=== PATIENT | female | born 1990 | race Caucasian/White ===

== ENCOUNTER → 2021-09-26 14:45 | Outpatient (BNVA) | payer MEDICAID, SELFPAY | PROVIDERS: Family Provider Family Medicine; PCP Family Medicine; Visit Provider Obstetrics & Gynecology | DX: Z01.419 Encounter for gynecological examination (general) (routine) without abnormal findings (principal); N92.6 Irregular menstruation, unspecified | CPT/HCPCS: 84443; 87624 ==

== ENCOUNTER → 2021-10-13 10:10 | Outpatient (BNVA) | payer MEDICAID, SELFPAY | PROVIDERS: Family Provider Family Medicine; PCP Family Medicine; Visit Provider Obstetrics & Gynecology | DX: N92.6 Irregular menstruation, unspecified (principal); N83.201 Unspecified ovarian cyst, right side | CPT/HCPCS: 76830 ==

== ENCOUNTER → 2022-04-03 09:10 | Outpatient (BNVA) | payer MEDICAID, SELFPAY | PROVIDERS: Family Provider Family Medicine; PCP Family Medicine; Visit Provider Student in an Organized Health Care Education/Training Program | DX: M65.342 Trigger finger, left ring finger (principal) | CPT/HCPCS: 73130 ==

== ENCOUNTER 2022-09-02 04:09 | Emergency (ER) | payer MEDICAID, SELFPAY ==
[2022-09-02 04:15] VITALS: BP 126/90; PULSE 121; RESP 18; TEMP 37.7; O2SAT 96; BMI 30.4
--- NOTE | 2022-09-02 04:21 | XRR_ITS ---
PROCEDURE INFORMATION: Exam: XR Chest Exam date and time: 09/02/2022 5:01 AM Age: 31 years old Clinical indication: Fever; Patient HX: 105 temp TECHNIQUE: Imaging protocol: Radiologic exam of the chest. Views: 1 view. COMPARISON: No relevant prior studies available. FINDINGS: Lungs: Unremarkable. No consolidation. Pleural spaces: Unremarkable. No pleural effusion. No pneumothorax. Heart/Mediastinum: Unremarkable. No cardiomegaly. Bones/joints: Unremarkable. XR/XR chest 1V portable [id number] IMPRESSION: No acute findings.
--- NOTE | 2022-09-02 04:28 | W.ED.FEVER ---
HPI - Fever General: Chief Complaint: Fever Stated Complaint: fever, sore throat, back pain Time Seen by Provider: 09/02/22 04:12 Source: patient Mode of arrival: ambulatory Limitations: no limitations History of Present Illness: 31-year-old female states she been having a fever along with mainly a sore throat since Sunday. States it is worsened throughout the week states her temperature was up to like 103 today she took a Motrin before arrival her temperature is improved she states that she has had some painful swallowing she feels like her tonsils are swollen she denies any cough states she had some muscle aches no vomiting or diarrhea. Associated symptoms: Reports chills; Deny abdominal pain, chest pain, diarrhea, dysuria, headache(s), nausea or vomiting Review of Systems Const: Reports: fever(s) and chills; Denies: body aches or change in appetite Eyes: Denies: blurry vision or eye discomfort ENMT: Reports: throat pain; Denies: dental pain Card: Denies: chest pain Resp: Denies: dyspnea GI: Denies: abdominal pain, nausea, vomiting or diarrhea : Denies: dysuria Musc: Denies: neck pain or back pain Skin/Breast: Denies: rash Neuro: Denies: headache(s) Psych: Denies: depression Cooper/Lymph: Denies: easy bruising All/Imm: Denies: urticaria PFSH ED PFSH: Medical History No pertinent past medical history neghx: htn, dm, thyroid, dvt/pe PCP: Dr. Menchaca Trigger finger, left ring finger Umbilical hernia Surgical History History of appendectomy History of hernia repair Hx laparoscopic cholecystectomy Family History Father Diabetes Hypertension Hypercholesteremia Thyroid disease hyperthyroidism Mother Hypertension Hypercholesteremia Ovarian cancer Thyroid disease hyperthyroidism Cervical cancer Denies family history of Colon cancer Heart disease Breast cancer Uterine cancer Stroke Physical Exam Const: COMMON NORMALS: no acute distress, patient oriented x3 and healthy appearing HENMT: COMMON NORMALS: normocephalic and atraumatic HEAD & SCALP: normocephalic and atraumatic OTHER: tonsilar erythema with no uvula deviation handling secretions well Eye: COMMON NORMALS: Equal, round and reactive pupils present and EOMs intact bilaterally PUPIL: Yes Equal, round and reactive pupils present Neck/C-Spine: COMMON NORMALS: full ROM and supple Chest: COMMONS NORMALS: normal inspection of the chest and normal palpation of entire chest wall Resp: COMMON NORMALS: normal respiratory effort, No retractions, No use of accessory muscles and clear to auscultation bilaterally AUSCULTATION: clear to auscultation bilaterally Cardio: COMMON NORMALS: regular rate, regular rhythm and No murmurs present (Cardio) RATE: regular rate RHYTHM: regular rhythm GI: COMMON NORMALS: Normal to inspection, nondistended, normoactive bowel sounds present, Soft to palpation, non-tender and no masses PALPATION: Yes Soft to palpation Extremity: COMMON NORMALS: normal to inspection and full ROM Neuro: COMMON NORMALS: patient oriented x3, moves all extremities and no focal motor deficits Psych: COMMON NORMALS: mental status grossly normal, Normal thought process present and cooperative THOUGHT PROCESS: Normal thought process present Skin: COMMON NORMALS: no rashes or lesions noted and no wounds GENERAL SKIN EXAM: no rashes or lesions noted Course Vital Signs: Vital signs: Vital Signs Temperature 100 F H 09/02/22 04:15 Pulse Rate 121 H 09/02/22 04:15 Respiratory Rate 18 09/02/22 04:15 Blood Pressure 126/90 09/02/22 04:15 Pulse Oximetry 96 09/02/22 04:15 MDM - Fever Medical Decision Making Patient presents for sore throat she does have some cervical lymphadenopathy along with enlarged reddened tonsils her mono here was negative she feels much improved after Decadron and IV fluids her heart rate is now in the 80s she has no difficulty swallowing no signs of peritonsillar abscess we will prescribe her antibiotics she is to follow-up with PCP and return if worsening she understands agrees to plan. Lab Data Radiology Impressions Chest X-Ray 09/02/22 04:21 IMPRESSION: No acute findings. Laboratory Results Urine Color Yellow (Yellow) 09/02/22 05:25 Urine Appearance Clear (CLEAR) 09/02/22 05:25 Urine pH 7 (5-7) 09/02/22 05:25 Ur Specific [place] 1.000 (1.005-1.030) L 09/02/22 05:25 Urine Protein Neg (Negative) 09/02/22 05:25 Urine Glucose (UA) Norm (Normal) 09/02/22 05:25 Urine Ketones Negative (Negative) 09/02/22 05:25 Urine Blood 2+ (Negative) H 09/02/22 05:25 Urine Nitrate Negative (Negative) 09/02/22 05:25 Urine Bilirubin Neg (Negative) 09/02/22 05:25 Urine Urobilinogen Norm mg/dL (Negative) 09/02/22 05:25 Ur Leukocyte Esterase Negative (Negative) 09/02/22 05:25 Urine RBC 5-10 /hpf (0-2) H 09/02/22 05:25 Urine WBC None /hpf (0-5) 09/02/22 05:25 Ur Squamous Epith Cells 0-4 /hpf (0-5) H 09/02/22 05:25 Amorphous Sediment Not Reportable 09/02/22 05:25 Urine Bacteria Trace /hpf (NONE) 09/02/22 05:25 Monoscreen Negative (Negative) 09/02/22 04:35 Influenza Type A Ag negative (Negative) 09/02/22 04:50 Influenza Type B Ag negative (Negative) 09/02/22 04:50 SARS-CoV-2 Ag (Rapid) negative (Negative) 09/02/22 04:50 Discharge Plan Discharge Patient Disposition: Home Clinical Impression: Pharyngitis Condition: Stable Prescriptions: New cephalexin 500 mg capsule 500 mg PO TID 7 Days Qty: 21 0RF No Action ibuprofen [Advil] 200 mg tablet 200 mg PO Q6H PRN Women's Multivitamin 18 mg-400 mcg- 500 mg-50 mcg tablet PO etonogestrel-ethinyl estradiol [EluRyng] 0.12-0.015 mg/24 hr ring 1 vag ring vaginal .3 weeks Qty: 1 12RF Rx Instructions: place for three weeks, then leave out for 1 week for period Discharge Orders: Discharge ED (Routine); Ordered 09/02/22 Ordered By: Yareli Arora Referrals: Nikolas Menchaca MD [Primary Care Provider] - Discharge Diet: Advance as tolerated Discharge Activity: Resume usual activity Patient Instructions: Pharyngitis (ED) Coding Level of Care Code ED Environmental Lawyer for [facility]
[2022-09-02] MEDS: sodium chloride 0.9% 1,000 ML 999 ML IV (04:47)
[2022-09-02] MEDS: dexamethasone 10 mg/mL INJ IVP (04:48)
[2022-09-02 05:21] LABS: Influenza A by IFA negative (Negative); Influenza B by IFA negative (Negative); SARS Covid-2 Antigen negative (Negative)
[2022-09-02 05:42] LABS: Monoscreen Negative (Negative)
[2022-09-02 06:40] LABS: Urine Appearance Clear (CLEAR); Urine Color Yellow (Yellow); pH Urine 7 (5-7)
[2022-09-02 06:41] LABS: Add Urine Microscopic? YES; Bilirubin Urine Neg (Negative); Blood Urine 2+ (Negative); Glucose Urine UA Norm (Normal); Ketones Urine Negative (Negative); Leukocyte Esterase Urine Negative (Negative); Nitrate Urine Negative (Negative); Protein Urine Neg (Negative); Urobilinogen Urine Norm (Negative)
[2022-09-02 06:43] LABS: Add Urine Culture? No; Bacteria Urine TRACE /hpf; Squamous Epithelial Cell Urine 0-4 /hpf (0-5)
== END 2022-09-02 06:39 | disposition home or self-care (01) ==
PROVIDERS: Emergency Provider Emergency Medicine; Family Provider Family Medicine; PCP Family Medicine
DX: J02.9 Acute pharyngitis, unspecified (principal); Z20.822 Contact with and (suspected) exposure to COVID-19
CPT/HCPCS: 71045; 81001; 86308; 87081; 87426; 87804; 96374; 99284; J1100; J7030